=== PATIENT | female | born 1965 | race Caucasian/White ===

== ENCOUNTER → 2016-10-04 | Outpatient (CLI) | payer OTHER ==
[~2016-10-04] MED LIST: ASPIRIN EC81 MG PO; TOPAMAX 100 MG100 MG PO
== END ==
LOC: US 13:57
DX: N20.0 Calculus of kidney (principal)
CPT/HCPCS: 74000

== ENCOUNTER → 2016-10-26 | Outpatient (CLI) | payer OTHER | LOC: RAD 08:49 | DX: N20.0 Calculus of kidney (principal); N28.89 Other specified disorders of kidney and ureter | CPT/HCPCS: 74400; Q9962 ==

== ENCOUNTER → 2020-06-12 | Outpatient (CLI) | payer OTHER ==
[~2020-06-12] MED LIST changes: +BUDESONIDE EC3 MG PO; +CREON DR 24,001 EACH PO; +ELAVIL 25 MG TA25 MG PO; +HYDROCHLOROTHIA25 MG PO; +LEVOTHYROXINE200 MC1 PO; +LIORESAL TAB 1010 MG PO; +LIPITOR TAB 1010 MG PO; +LORTAB 7.5-3251 EACH PO; +METFORMIN HCL500 MG PO; +NEURONTIN 300300 MG PO; +POTASSIUM CHLO10 MEQ PO; +PROMETHAZINE12.5 M1 PO; +TERCONAZOLE80 MG VG
[2020-06-12 09:09] LABS: HEMOGLOBIN 12.5 gm/dl (12.3-15.3); RED BLOOD COUNT 4.91 M/UL (4.00-5.10); WHITE BLOOD COUNT 9.2 K/UL (4.5-11.0)
[2020-06-12 09:40] LABS: BUN/CREATININE RATIO 20 (0-10)
== END ==
LOC: LAB 07:33
PROVIDERS: Family Medicine
DX: E78.5 Hyperlipidemia, unspecified (principal); E03.9 Hypothyroidism, unspecified; E11.9 Type 2 diabetes mellitus without complications
CPT/HCPCS: 36415; 80053; 80061; 82607; 83036; 84443; 85027

== ENCOUNTER → 2020-11-03 | Outpatient (CLI) | payer MEDICARE, OTHER ==
[2020-11-03 09:24] LABS: HEMOGLOBIN 13.8 gm/dl (12.3-15.3); RED BLOOD COUNT 5.29 M/UL (4.00-5.10); WHITE BLOOD COUNT 7.5 K/UL (4.5-11.0)
[2020-11-03 09:51] LABS: BUN/CREATININE RATIO 19 (0-10)
== END ==
LOC: LAB 07:28
PROVIDERS: Internal Medicine Rheumatology
DX: M06.9 Rheumatoid arthritis, unspecified (principal)
CPT/HCPCS: 36415; 80053; 85025; 85652; 86140

== ENCOUNTER → 2020-11-19 | Outpatient (CLI) | payer MEDICARE, OTHER ==
[2020-11-19 12:21] LABS: RED BLOOD COUNT 4.99 M/UL (4.00-5.10); WHITE BLOOD COUNT 7.6 K/UL (4.5-11.0)
[2020-11-19 12:59] LABS: BUN/CREATININE RATIO 21 (0-10)
== END ==
LOC: LAB 09:56
PROVIDERS: Orthopaedic Surgery
DX: Z01.818 Encounter for other preprocedural examination (principal); E11.9 Type 2 diabetes mellitus without complications; E78.00 Pure hypercholesterolemia, unspecified; M17.12 Unilateral primary osteoarthritis, left knee
CPT/HCPCS: 36415; 71046; 80053; 85025; 93005

== ENCOUNTER → 2020-11-20 | Outpatient (CLI) | payer MEDICARE, OTHER | LOC: HEART 5 07:42 | DX: Z01.810 Encounter for preprocedural cardiovascular examination (principal); I10 Essential (primary) hypertension; I95.1 Orthostatic hypotension; R00.2 Palpitations | CPT/HCPCS: 78452; A9502; J2785 ==

== ENCOUNTER → 2020-11-28 | Outpatient (CLI) | payer MEDICARE, OTHER | LOC: LAB 09:42 | DX: N20.0 Calculus of kidney (principal); R31.0 Gross hematuria | CPT/HCPCS: 74018; 87086 ==

== ENCOUNTER → 2021-03-05 | Outpatient (CLI) | payer MEDICARE, OTHER ==
[2021-03-05 09:39] LABS: BUN/CREATININE RATIO 20 (0-10)
[2021-03-06 08:13] LABS: CORTISOL 11.1 ug/dL (.)
[2021-03-06 11:13] LABS: TESTOSTERONE, SERUM 27 ng/dL (4-50)
[2021-03-09 01:10] LABS: ESTROGENS, TOTAL 79 pg/mL (.)
== END ==
LOC: LAB 08:02
PROVIDERS: Urology
DX: E27.8 Other specified disorders of adrenal gland (principal)
CPT/HCPCS: 36415; 80048; 82088; 82530; 82533; 82672; 83835; 84244; 84403

== ENCOUNTER → 2021-03-27 | Outpatient (CLI) | payer MEDICARE, OTHER ==
[2021-03-27 08:48] LABS: BUN/CREATININE RATIO 20 (0-10)
[2021-03-28 07:10] LABS: CREATININE, URINE 132.5 mg/dL (Not Estab.)
== END ==
LOC: LAB 07:25
PROVIDERS: Family Medicine
DX: E11.9 Type 2 diabetes mellitus without complications (principal)
CPT/HCPCS: 36415; 80053; 80061; 82043; 82570; 83036

== ENCOUNTER → 2021-04-17 | Outpatient (CLI) | payer MEDICARE, OTHER ==
[2021-04-17 11:29] LABS: RED BLOOD COUNT 4.49 M/UL (4.00-5.10); WHITE BLOOD COUNT 8.9 K/UL (4.5-11.0)
[2021-04-17 11:55] LABS: BUN/CREATININE RATIO 14 (0-10)
== END ==
LOC: LAB 09:41
PROVIDERS: Orthopaedic Surgery
DX: Z01.818 Encounter for other preprocedural examination (principal); M17.12 Unilateral primary osteoarthritis, left knee; E11.9 Type 2 diabetes mellitus without complications; D64.9 Anemia, unspecified; R91.8 Other nonspecific abnormal finding of lung field; J90 Pleural effusion, not elsewhere classified
CPT/HCPCS: 36415; 71046; 80053; 85025; 93005

== ENCOUNTER → 2021-05-01 | Outpatient (CLI) | payer MEDICARE, OTHER | LOC: ECHO 12:30 | DX: I34.1 Nonrheumatic mitral (valve) prolapse (principal); I07.1 Rheumatic tricuspid insufficiency | CPT/HCPCS: ECHO; 93306 ==

== ENCOUNTER 2021-05-06 21:01 | Emergency (ER) | payer MEDICARE, OTHER ==
[~2021-05-06] VITALS: Ht 180.3 cm; Wt 100.7 kg
[~2021-05-06 21:01] MED LIST changes: +HYDROCHLOROTH12.5 MG PO; -HYDROCHLOROTHIA25 MG PO; -NEURONTIN 300300 MG PO; +NEURONTIN800 MG PO; -TOPAMAX 100 MG100 MG PO; +TOPAMAX50 MG PO
[2021-05-06 21:51] LABS: HEMOGLOBIN 11.5 gm/dl (12.3-15.3); RED BLOOD COUNT 4.27 M/UL (4.00-5.10); WHITE BLOOD COUNT 13.3 K/UL (4.5-11.0)
[2021-05-06 22:15] LABS: BUN/CREATININE RATIO 17 (0-10)
[2021-05-07] MEDS ORDERED: TOPAMAX50 MG PO (10:32)
[2021-05-07] MEDS ORDERED: METHOTREXA25 MG/1 M1 INJ (10:33)
[2021-05-07] MEDS ORDERED: PROTONIX 40 MG40 M1 PO (10:34)
[2021-05-07] MEDS ORDERED: LEVOCETIRIZINE D5 MG PO (10:34)
[2021-05-07] MEDS ORDERED: HUMIRA PEN40 MG/0.4 SQ (10:34)
[2021-05-07] MEDS ORDERED: AIMOVIG AU140 MG/1 M SQ (10:35)
[2021-05-07] MEDS ORDERED: TRAMADOL HCL50 MG PO (10:35)
[2021-05-07] MEDS ORDERED: VITAMIN D350 MC3 PO (10:36)
[2021-05-07] MEDS ORDERED: FOLIC ACID1 MG PO (10:36)
[2021-05-07] MEDS ORDERED: LANTUS SOL100 UNIT/1 SQ (10:36)
[2021-05-07] MEDS ORDERED: CALCIUM500 MG PO (10:37)
== END 2021-05-07 14:40 | disposition home or self-care (01) ==
LOC: ER1 21:01 → CDU 05-07 03:26 → ER1 05-07 03:26
PROVIDERS: Physician Assistant
DX: G89.18 Other acute postprocedural pain (principal); L76.82 Other postprocedural complications of skin and subcutaneous tissue; M25.562 Pain in left knee; Z96.652 Presence of left artificial knee joint
CPT/HCPCS: 73564; 80053; 83605; 85025; 85652; 86140; 87040; 96374; 99284; J0692; J1200; J2270; J2930; J3370; J7070